=== PATIENT | male | born 1955 | race Caucasian/White ===

== ENCOUNTER 2017-07-10 09:58 | Observation (INO) | payer MEDICARE, OTHER ==
[2017-07-10] MEDS ORDERED: OXYCODONE/ACETAMINOPHEN (5/325) TAB PO ×3 (11:30→15:30)
[2017-07-10] MEDS ORDERED: DIPHENHYDRAMINE 25 MG CAP PO (11:30)
[2017-07-10 11:38] LABS: ADD MAN DIFF? NO
[2017-07-10 11:46] LABS: WHITE BLOOD COUNT 6.4 10^3/ul (4.8-10.8)
[2017-07-10 11:46] LABS: ABNORMAL IP MESSAGE 1; BASOPHILS % 0.2 % (0.0-2.0); HEMATOCRIT 35.3 % (42.0-52.0); HEMOGLOBIN 11.4 g/dl (14.0-18.0); LYMPHOCYTES # 0.2 10^3/ul (0.8-2.9); LYMPHOCYTES % 3.1 % (15.0-51.0); MEAN CORPUSCULAR HEMOGLOBIN 26.8 pg (29.0-33.0); MEAN CORPUSCULAR HGB CONC 32.3 g/dl (32.0-37.0); MEAN CORPUSCULAR VOLUME 83.1 fl (82.0-101.0); MEAN PLATELET VOLUME 11.6 fl (7.4-10.4); MONOCYTE # 0.5 10^3/ul (0.3-0.9); NEUTROPHIL # 5.6 10^3/ul (1.6-7.5); NEUTROPHILS % 88.2 % (39.0-77.0); PLATELET COUNT 123 10^3/UL (140-415); POSITIVE DIFF @See below; RED BLOOD COUNT 4.25 10^6/ul (4.70-6.10); RED CELL DISTRIBUTION WIDTH 15.2 % (11.5-14.5)
[2017-07-10] MEDS: SOD CHLORIDE 0.9% 1,000 ML IV ×2 (11:57→12:00)
[2017-07-10] MEDS: VANCOMYCIN 1 GM (PMX) 250 ML IVPB (11:57)
[2017-07-10 12:04] LABS: ALANINE AMINOTRANSFERASE 31 IU/L (13-69); ALBUMIN 3.6 g/dl (3.3-4.9); ALBUMIN/GLOBULIN RATIO 1.16; ALKALINE PHOSPHATASE 214 IU/L (42-121); ANION GAP 17 (8-16); ASPARTATE AMINO TRANSFERASE 19 IU/L (15-46); BILIRUBIN,INDIRECT 1.1 mg/dl (0-1.1); BILIRUBIN,TOTAL 1.2 mg/dl (0.2-1.3); CARBON DIOXIDE 28 mmol/L (21-31); CHLORIDE 101 mmol/L (97-110); GLUCOSE 120 mg/dl (70-220); TOTAL PROTEIN 6.7 g/dl (6.1-8.1)
[2017-07-10 12:08] LABS: BLOOD UREA NITROGEN 18 mg/dl (7-20); CALCIUM 8.9 mg/dl (8.4-10.2); CREATININE 0.97 mg/dl (0.61-1.24); SODIUM 142 mmol/L (135-144)
[2017-07-10 12:23] LABS: ADD UMIC YES; UR ASCORBIC ACID NEGATIVE (NEGATIVE); UR BILIRUBIN (Dip) 2+ mg/dL (NEGATIVE); UR BLOOD (Dip) NEGATIVE (NEGATIVE); UR CLARITY CLEAR (CLEAR); UR COLOR AMBER (YELLOW); UR GLUCOSE (Dip) NEGATIVE (NEGATIVE); UR KETONES (Dip) NEGATIVE (NEGATIVE); UR LEUKOCYTE ESTERASE (Dip) NEGATIVE Leu/ul (NEGATIVE); UR MUCUS FEW /HPF (NONE SEEN); UR NITRITE (Dip) NEGATIVE (NEGATIVE); UR RBC 6 /HPF (0-5); UR SPECIFIC GRAVITY (Dip) 1.028 (1.003-1.030); UR TOTAL PROTEIN (Dip) 1+ mg/dl (NEGATIVE); UR UROBILINOGEN (Dip) 2+ mg/dL (NEGATIVE); UR WBC 2 /HPF (0-5)
[2017-07-10] MEDS ORDERED: ROCURONIUM 50 MG INJ (15:00)
[2017-07-10] MEDS ORDERED: GLYCOPYRROLATE 0.4 MG INJ (15:00)
[2017-07-10] MEDS ORDERED: NEOSTIGMINE 3 MG/3 ML SYRINGE (15:00)
[2017-07-10] MEDS ORDERED: LIDOCAINE 2% (SDV) 5 ML INJ (15:00)
[2017-07-10] MEDS ORDERED: PROPOFOL 200 MG INJ (15:00)
[2017-07-10] MEDS ORDERED: PIPER-TAZO 3.375 GM IV (PMX) 100 ML (15:02)
[2017-07-10] MEDS ORDERED: ROPIVACAINE 0.5 % 30 ML VIAL (15:04)
[2017-07-10] MEDS ORDERED: HYDROCORTISONE 100 MG INJ (15:26)
[2017-07-10] MEDS ORDERED: MIDAZOLAM 1 MG/ML 2 ML INJ IV (15:30)
[2017-07-10] MEDS ORDERED: HYDROmorphONE (0.2 MG/ML) 10ML SYG IV ×3 (15:30)
[2017-07-10] MEDS ORDERED: FENTAnyl 50 MCG/ML VIAL IV ×2 (15:30)
[2017-07-10] MEDS ORDERED: hydrALAzine 20 MG INJ IV (15:30)
[2017-07-10] MEDS ORDERED: ALBUTEROL 0.083% (NEB) 2.5 MG/3 ML AMP HHN (15:30)
[2017-07-10] MEDS ORDERED: LABETALOL HCL 20MG INJ IV (15:30)
[2017-07-10] MEDS ORDERED: MEPERIDINE 25 MG INJ IV (15:30)
[2017-07-10] MEDS ORDERED: METOCLOPRAMIDE 10 MG INJ IV (15:30)
[2017-07-10] MEDS ORDERED: ONDANSETRON 4 MG INJ IV (15:30)
[2017-07-10] MEDS ORDERED: DIPHENHYDRAMINE 50 MG INJ IV (15:30)
[2017-07-10] MEDS ORDERED: KETOROLAC 30 MG INJ IV (15:30)
[2017-07-10] MEDS ORDERED: EPHEDrine SULFATE 50 MG/5 ML SYG IV (15:30)
[2017-07-10] MEDS ORDERED: morphine 10 MG INJ (15:31)
[2017-07-10] MEDS: VANCOMYCIN 1 GM INJ IVPB (16:00)
[2017-07-10] MEDS: PIPER-TAZO 3.375 GM IV (PMX) 100 ML IVPB (16:00)
[2017-07-10] MEDS: POLYMYXIN B 500000 UNIT INJ IRR (16:00)
[2017-07-10] MEDS: BACITRACIN 50000 UNITS INJ IRR (16:00)
[2017-07-10 16:04] LABS: FREE T4 (FREE THYROXINE) 0.68 ng/dl (0.78-2.44)
[2017-07-10 16:05] LABS: T4 (THYROXINE) 2.9 ug/dl (5.5-11.0)
[2017-07-10] MEDS ORDERED: VANCOMYCIN 1 GM INJ (16:09)
[2017-07-10] MEDS ORDERED: POLYMYXIN B 500000 UNIT INJ ×2 (16:09→16:25)
[2017-07-10 16:12] LABS: ALANINE AMINOTRANSFERASE 26 IU/L (13-69); ALBUMIN 3.6 g/dl (3.3-4.9); ALKALINE PHOSPHATASE 201 IU/L (42-121); ASPARTATE AMINO TRANSFERASE 18 IU/L (15-46); BILIRUBIN,TOTAL 1.1 mg/dl (0.2-1.3); TOTAL PROTEIN 5.9 g/dl (6.1-8.1)
[2017-07-10] MEDS ORDERED: LABETALOL HCL 20MG INJ (16:46)
[2017-07-10] MEDS ORDERED: KETOROLAC 30 MG INJ (17:06)
[2017-07-10] MEDS ORDERED: FENTAnyl 50 MCG/ML VIAL (17:12)
[2017-07-10] MEDS: FENTAnyl 50 MCG/ML VIAL IV ×2 (18:13→18:35)
[2017-07-10 18:33] LABS: PLATELET COUNT 104 10^3/UL (140-415)
[2017-07-10 18:51] LABS: INR 1.24; PROTIME 15.8 Sec (11.9-14.9); PT RATIO 1.2
[2017-07-10 18:52] LABS: PARTIAL THROMBOPLASTIN TIME 37.9 Sec (25.0-35.0)
[2017-07-10 18:56] LABS: THROMBIN TIME 14.8 SEC (13.8-19.1)
[2017-07-10] MEDS: morphine 10 MG INJ IV ×2 (18:58→23:28)
[2017-07-10] MEDS: HYDROCORTISONE 100 MG INJ IV (21:31)
[2017-07-11] MEDS: SOD CHLORIDE 0.9% 1,000 ML IV ×2 (01:20→14:40)
[2017-07-11] MEDS: HYDROmorphONE 0.5 MG/0.5 ML SYG IV ×3 (01:30→10:53)
[2017-07-11 05:25] LABS: ABNORMAL IP MESSAGE 1; HEMOGLOBIN 10.3 g/dl (14.0-18.0); MEAN CORPUSCULAR HEMOGLOBIN 26.7 pg (29.0-33.0); MEAN CORPUSCULAR HGB CONC 32.2 g/dl (32.0-37.0); MEAN CORPUSCULAR VOLUME 82.9 fl (82.0-101.0); MEAN PLATELET VOLUME 11.6 fl (7.4-10.4); PLATELET COUNT 95 10^3/UL (140-415); POSITIVE DIFF @See below; RED BLOOD COUNT 3.86 10^6/ul (4.70-6.10); RED CELL DISTRIBUTION WIDTH 15.1 % (11.5-14.5)
[2017-07-11 05:51] LABS: ADD MAN DIFF? YES
[2017-07-11 06:24] LABS: ALANINE AMINOTRANSFERASE 28 IU/L (13-69); ALBUMIN/GLOBULIN RATIO 1.42; ALKALINE PHOSPHATASE 159 IU/L (42-121); ANION GAP 16 (8-16); ASPARTATE AMINO TRANSFERASE 17 IU/L (15-46); BILIRUBIN,INDIRECT 0.2 mg/dl (0-1.1); BILIRUBIN,TOTAL 0.2 mg/dl (0.2-1.3); BLOOD UREA NITROGEN 23 mg/dl (7-20); CALCIUM 8.3 mg/dl (8.4-10.2); CARBON DIOXIDE 26 mmol/L (21-31); CHLORIDE 107 mmol/L (97-110); CREATININE 0.74 mg/dl (0.61-1.24); GLUCOSE 145 mg/dl (70-220); POTASSIUM 4.2 mmol/L (3.5-5.1); SODIUM 145 mmol/L (135-144); TOTAL PROTEIN 5.1 g/dl (6.1-8.1)
[2017-07-11 07:21] LABS: PHOSPHORUS 3.2 mg/dl (2.5-4.9)
[2017-07-11 07:21] LABS: MAGNESIUM 2.1 mg/dl (1.7-2.5)
[2017-07-11] MEDS: SERTRALINE 100 MG TAB PO (08:58)
[2017-07-11] MEDS: predniSONE 10 MG TAB PO (08:58)
[2017-07-11] MEDS: ARIPIPRAZOLE 10 MG TAB PO (08:58)
[2017-07-11 10:26] LABS: LYMPHOCYTES # 0.2 10^3/ul (0.8-2.9); LYMPHOCYTES % 9.7 % (15.0-51.0); MONOCYTE # 0.2 10^3/ul (0.3-0.9); MONOCYTES % 7.1 % (0.0-11.0); NEUTROPHILS % 82.8 % (39.0-77.0)
[2017-07-11] MEDS ORDERED: VANCOMYCIN IV PER PHARMACY XX (10:30)
[2017-07-11 10:31] LABS: WHITE BLOOD COUNT 2.4 10^3/ul (4.8-10.8)
[2017-07-11] MEDS: PIPER-TAZO 3.375 GM IV (PMX) 100 ML IVPB ×3 (10:52→22:00)
[2017-07-11 11:38] LABS: ADD MAN DIFF? NO
[2017-07-11 11:56] LABS: ABNORMAL IP MESSAGE 1; BASOPHILS % 0.3 % (0.0-2.0); HEMATOCRIT 35.1 % (42.0-52.0); HEMOGLOBIN 11.4 g/dl (14.0-18.0); LYMPHOCYTES # 0.4 10^3/ul (0.8-2.9); LYMPHOCYTES % 10.1 % (15.0-51.0); MEAN CORPUSCULAR HEMOGLOBIN 27.2 pg (29.0-33.0); MEAN CORPUSCULAR HGB CONC 32.5 g/dl (32.0-37.0); MEAN CORPUSCULAR VOLUME 83.8 fl (82.0-101.0); MEAN PLATELET VOLUME 12.6 fl (7.4-10.4); MONOCYTE # 0.3 10^3/ul (0.3-0.9); MONOCYTES % 7.2 % (0.0-11.0); NEUTROPHIL # 3.1 10^3/ul (1.6-7.5); NEUTROPHILS % 81.9 % (39.0-77.0); PLATELET COUNT 123 10^3/UL (140-415); POSITIVE DIFF @See below; RED BLOOD COUNT 4.19 10^6/ul (4.70-6.10); RED CELL DISTRIBUTION WIDTH 15.3 % (11.5-14.5)
[2017-07-11 11:56] LABS: WHITE BLOOD COUNT 3.8 10^3/ul (4.8-10.8)
[2017-07-11 12:47] LABS: C-REACTIVE PROTEIN 16.7 mg/dl (0.0-0.9)
[2017-07-11] MEDS: VANCOMYCIN 1.5 GM in SOD CHLORIDE 0.9% 250 ML IVPB ×2 (12:48→23:05)
[2017-07-11] MEDS: ONDANSETRON 4 MG INJ IV ×2 (14:15→22:00)
[2017-07-11] MEDS: oxyCODONE (CR) 40 MG TAB [oxyCONTIN] PO ×2 (15:30→21:58)
[2017-07-11] MEDS: LIDOCAINE 1% (MPF) 5 ML VIAL SC (15:30)
[2017-07-11] MEDS: HYDROmorphONE 2 MG/ML SYG IV ×2 (18:12→23:05)
[2017-07-11] MEDS: RIVAROXABAN 10 MG TABLET PO (18:12)
[2017-07-12] MEDS: HYDROmorphONE 2 MG/ML SYG IV ×4 (00:13→11:12)
[2017-07-12] MEDS: SOD CHLORIDE 0.9% 1,000 ML IV ×2 (04:00→17:11)
[2017-07-12 05:52] LABS: ADD MAN DIFF? NO
[2017-07-12 05:58] LABS: BASOPHILS % 0.5 % (0.0-2.0); HEMATOCRIT 33.4 % (42.0-52.0); HEMOGLOBIN 10.7 g/dl (14.0-18.0); LYMPHOCYTES # 0.6 10^3/ul (0.8-2.9); LYMPHOCYTES % 15.3 % (15.0-51.0); MEAN CORPUSCULAR HEMOGLOBIN 26.8 pg (29.0-33.0); MEAN CORPUSCULAR VOLUME 83.7 fl (82.0-101.0); MEAN PLATELET VOLUME 11.8 fl (7.4-10.4); MONOCYTE # 0.5 10^3/ul (0.3-0.9); MONOCYTES % 12.9 % (0.0-11.0); NEUTROPHIL # 2.9 10^3/ul (1.6-7.5); NEUTROPHILS % 71.1 % (39.0-77.0); PLATELET COUNT 139 10^3/UL (140-415); RED BLOOD COUNT 3.99 10^6/ul (4.70-6.10); RED CELL DISTRIBUTION WIDTH 15.1 % (11.5-14.5)
[2017-07-12] MEDS: PIPER-TAZO 3.375 GM IV (PMX) 100 ML IVPB (06:10)
[2017-07-12] MEDS: oxyCODONE (CR) 40 MG TAB [oxyCONTIN] PO ×2 (06:10→14:21)
[2017-07-12] MEDS: predniSONE 5 MG TAB PO (06:10)
[2017-07-12 06:12] LABS: MAGNESIUM 2.1 mg/dl (1.7-2.5)
[2017-07-12 06:12] LABS: PHOSPHORUS 3.5 mg/dl (2.5-4.9)
[2017-07-12 06:20] LABS: ALANINE AMINOTRANSFERASE 31 IU/L (13-69); ALBUMIN 3.2 g/dl (3.3-4.9); ALBUMIN/GLOBULIN RATIO 1.28; ALKALINE PHOSPHATASE 133 IU/L (42-121); ANION GAP 15 (8-16); ASPARTATE AMINO TRANSFERASE 19 IU/L (15-46); BILIRUBIN,INDIRECT 0.1 mg/dl (0-1.1); BILIRUBIN,TOTAL 0.1 mg/dl (0.2-1.3); BLOOD UREA NITROGEN 20 mg/dl (7-20); CALCIUM 8.2 mg/dl (8.4-10.2); CARBON DIOXIDE 27 mmol/L (21-31); CHLORIDE 108 mmol/L (97-110); CREATININE 0.77 mg/dl (0.61-1.24); GLUCOSE 107 mg/dl (70-220); POTASSIUM 3.7 mmol/L (3.5-5.1); SODIUM 146 mmol/L (135-144); TOTAL PROTEIN 5.7 g/dl (6.1-8.1)
[2017-07-12] MEDS: SERTRALINE 100 MG TAB PO (09:50)
[2017-07-12] MEDS: ARIPIPRAZOLE 10 MG TAB PO (09:50)
[2017-07-12] MEDS: clonAZEPAM 0.5 MG TAB PO (09:50)
[2017-07-12] MEDS: VANCOMYCIN 1.5 GM in SOD CHLORIDE 0.9% 250 ML IVPB (11:14)
[2017-07-12] MEDS: CIPROFLOXACIN 500 MG TAB PO (14:21)
[2017-07-12] MEDS: CEFTRIAXONE 2 GM/50 ML (PMX) 50 ML IVPB (15:33)
[2017-07-12] MEDS: RIVAROXABAN 10 MG TABLET PO (17:55)
[2017-07-12] MEDS ORDERED: CIPROFLOXACIN 500 MG TAB PO (20:00)
[2017-07-14 17:16] LABS: PTH CALCIUM 8.6 mg/dL (8.6-10.3)
[2017-07-15 07:47] LABS: PTH INTACT 43 pg/mL (14-64)
== END 2017-07-12 18:25 | disposition home health service (06) ==
LOC: SDS 09:58 → MS1 07-11 03:00 → REC 11:08 → MS1 18:27 → REC 18:27 → SDS 11:08 → MS1 18:27
DX: T85.698A Other mechanical complication of other specified internal prosthetic devices, implants and grafts, initial encounter (principal); L03.116 Cellulitis of left lower limb; M86.9 Osteomyelitis, unspecified; M06.9 Rheumatoid arthritis, unspecified; M32.9 Systemic lupus erythematosus, unspecified; Y83.9 Surgical procedure, unspecified as the cause of abnormal reaction of the patient, or of later complication, without mention of misadventure at the time of the procedure
CPT/HCPCS: 20680; 36569; 71045; 73600-LT; 76937; 80053; 80076; 81001; 82306; 83735; 83970; 84100; 84436; 84439; 84443; 85025; 85049; 85610; 85651; 85670; 85730; 86140; 87070; 87075; 87102; 87116; 88304; 88311; 88312; 93005; 97116; 97161; 97530

== ENCOUNTER 2017-08-09 18:06 | Inpatient (IN) | payer MEDICARE, OTHER ==
[2017-08-09] MEDS: SODIUM CHLORIDE 0.9% 1L BAG IV* (18:53)
[2017-08-09] MEDS: CEFEPIME 2GM/50 ML (PMX) 50 ML IVPB (18:58)
[2017-08-09] MEDS: ACETAMINOPHEN 500 MG TAB PO (18:59)
[2017-08-09] MEDS: ONDANSETRON 4 MG INJ IV (18:59)
[2017-08-09] MEDS: HYDROmorphONE 1 MG/5 ML IV SYRINGE IV (18:59)
[2017-08-09 19:04] LABS: ADD MAN DIFF? NO
[2017-08-09 19:06] LABS: ABNORMAL IP MESSAGE 1; BASOPHILS % 0.3 % (0.0-2.0); HEMATOCRIT 33.7 % (42.0-52.0); HEMOGLOBIN 10.8 g/dl (14.0-18.0); LYMPHOCYTES # 0.4 10^3/ul (0.8-2.9); MEAN CORPUSCULAR HEMOGLOBIN 25.7 pg (29.0-33.0); MONOCYTE # 0.4 10^3/ul (0.3-0.9); MONOCYTES % 9.2 % (0.0-11.0); NEUTROPHIL # 3.1 10^3/ul (1.6-7.5); NEUTROPHILS % 79.2 % (39.0-77.0); PLATELET COUNT 125 10^3/UL (140-415); POSITIVE DIFF @See below; RED BLOOD COUNT 4.21 10^6/ul (4.70-6.10); RED CELL DISTRIBUTION WIDTH 15.4 % (11.5-14.5)
[2017-08-09 19:06] LABS: WHITE BLOOD COUNT 3.9 10^3/ul (4.8-10.8)
[2017-08-09 19:20] LABS: INR 1.18; PROTIME 15.2 Sec (11.9-14.9); PT RATIO 1.2
[2017-08-09 19:21] LABS: PARTIAL THROMBOPLASTIN TIME 42.2 Sec (25.0-35.0)
[2017-08-09 19:26] LABS: LACTIC ACID 1.2 mmol/L (0.5-2.0)
[2017-08-09 19:28] LABS: ALANINE AMINOTRANSFERASE 40 IU/L (13-69); ALBUMIN 3.3 g/dl (3.3-4.9); ALBUMIN/GLOBULIN RATIO 1.22; ALKALINE PHOSPHATASE 303 IU/L (42-121); ANION GAP 13 (8-16); ASPARTATE AMINO TRANSFERASE 31 IU/L (15-46); BILIRUBIN,INDIRECT 0.3 mg/dl (0-1.1); BILIRUBIN,TOTAL 0.3 mg/dl (0.2-1.3); BLOOD UREA NITROGEN 15 mg/dl (7-20); CALCIUM 8.6 mg/dl (8.4-10.2); CARBON DIOXIDE 28 mmol/L (21-31); CHLORIDE 95 mmol/L (97-110); CREATININE 0.91 mg/dl (0.61-1.24); GLUCOSE 129 mg/dl (70-220); POTASSIUM 3.8 mmol/L (3.5-5.1); SODIUM 132 mmol/L (135-144)
[2017-08-09] MEDS ORDERED: ONDANSETRON 4 MG INJ IV (19:30)
[2017-08-09 19:39] LABS: C-REACTIVE PROTEIN 14.1 mg/dl (0.0-0.9); TROPONIN-I < 0.012 ng/ml (0.00-0.12)
[2017-08-09 20:09] LABS: ERYTHROCYTE SEDIMENTATION RATE 28 mm/Hr (0-20)
[2017-08-09] MEDS: VANCOMYCIN 1 GM (PMX) 250 ML IVPB (20:41)
[2017-08-09] MEDS ORDERED: oxyCODONE (CR) 40 MG TAB [oxyCONTIN] PO (21:00)
[2017-08-09 21:39] LABS: LACTIC ACID 0.8 mmol/L (0.5-2.0)
[2017-08-10 00:02] LABS: LACTIC ACID 0.8 mmol/L (0.5-2.0)
[2017-08-10] MEDS: PIPER-TAZO 3.375 GM IV (PMX) 100 ML IVPB ×5 (00:23→23:28)
[2017-08-10] MEDS: morphine 2 MG INJ IV ×3 (00:23→20:11)
[2017-08-10] MEDS: ACETAMINOPHEN 325 MG TAB PO (03:08)
[2017-08-10 03:17] LABS: ADD UMIC NO; UR ASCORBIC ACID NEGATIVE (NEGATIVE); UR BILIRUBIN (Dip) NEGATIVE (NEGATIVE); UR BLOOD (Dip) NEGATIVE (NEGATIVE); UR CLARITY CLEAR (CLEAR); UR COLOR YELLOW (YELLOW); UR GLUCOSE (Dip) NEGATIVE (NEGATIVE); UR KETONES (Dip) TRACE mg/dL (NEGATIVE); UR LEUKOCYTE ESTERASE (Dip) NEGATIVE Leu/ul (NEGATIVE); UR NITRITE (Dip) NEGATIVE (NEGATIVE); UR SPECIFIC GRAVITY (Dip) 1.027 (1.003-1.030); UR TOTAL PROTEIN (Dip) NEGATIVE (NEGATIVE); UR UROBILINOGEN (Dip) NEGATIVE (NEGATIVE)
[2017-08-10 06:26] LABS: ABNORMAL IP MESSAGE 1; HEMATOCRIT 30.9 % (42.0-52.0); HEMOGLOBIN 9.6 g/dl (14.0-18.0); MEAN CORPUSCULAR HEMOGLOBIN 25.5 pg (29.0-33.0); MEAN CORPUSCULAR HGB CONC 31.1 g/dl (32.0-37.0); MEAN CORPUSCULAR VOLUME 82.2 fl (82.0-101.0); MEAN PLATELET VOLUME 12.1 fl (7.4-10.4); PLATELET COUNT 83 10^3/UL (140-415); POSITIVE DIFF @See below; RED BLOOD COUNT 3.76 10^6/ul (4.70-6.10); RED CELL DISTRIBUTION WIDTH 15.4 % (11.5-14.5)
[2017-08-10 06:26] LABS: WHITE BLOOD COUNT 2.3 10^3/ul (4.8-10.8)
[2017-08-10 07:08] LABS: ANION GAP 18 (8-16); BLOOD UREA NITROGEN 12 mg/dl (7-20); CALCIUM 8.1 mg/dl (8.4-10.2); CARBON DIOXIDE 25 mmol/L (21-31); CHLORIDE 100 mmol/L (97-110); GLUCOSE 192 mg/dl (70-220); POTASSIUM 3.7 mmol/L (3.5-5.1); SODIUM 139 mmol/L (135-144)
[2017-08-10 07:09] LABS: ADD MAN DIFF? YES
[2017-08-10] MEDS ORDERED: SERTRALINE 100 MG TAB PO (09:00)
[2017-08-10] MEDS: ENOXAPARIN 40 MG/0.4 ML SYG SC (09:00)
[2017-08-10] MEDS: VANCOMYCIN 1 GM (PMX) 250 ML IVPB ×2 (09:39→20:02)
[2017-08-10] MEDS: SERTRALINE 100 MG TAB PO (09:39)
[2017-08-10] MEDS: oxyCODONE (CR) 10 MG TAB [oxyCONTIN] PO ×2 (09:44→20:02)
[2017-08-10] MEDS ORDERED: SOD CHLORIDE 0.9% 100 ML (10:31)
[2017-08-10] MEDS ORDERED: IOHEXOL 300MG/ML 150 ML BTL (10:31)
[2017-08-10 12:05] LABS: ANISOCYTOSIS 2+ (0-0); BAND NEUTROPHILS #M 0.1 10^3/ul (0.0-0.6); BAND NEUTROPHILS % (M) 6 % (0-4); BURR CELLS 3+ (0-0); EOSINOPHILS % (M) 9 % (0-7); GIANT THROMBO% (M) 14 % (0-0); LYMPHOCYTES #M 0.3 10^3/ul (0.8-2.9); LYMPHOCYTES % (M) 14 % (15-51); MICROCYTOSIS 2+ (0-0); MONOCYTE #M 0.1 10^3/ul (0.3-0.9); MONOCYTES % (M) 8 % (0-11); OVALOCYTES 2+ (0-0); PLATELET ESTIMATE DECREASED; PLATELET MORPHOLOGY COMMENT @See below; POIKILOCYTOSIS 3+ (0-0); POLYCHROMASIA 1+ (0-0); SEG NEUT #M 1.5 10^3/ul (1.6-7.5); SEGMENTED NEUTROPHILS (M) % 64 % (39-77); SMUDGE%M 11 % (0-0)
[2017-08-10] MEDS ORDERED: PENDING SANTYL ORDER FOR WOUND CARE XX (14:30)
[2017-08-10] MEDS: SOD CHLORIDE 0.9% 1,000 ML IV ×2 (20:30→23:30)
[2017-08-11] MEDS: morphine 2 MG INJ IV ×4 (00:21→15:17)
[2017-08-11] MEDS: PIPER-TAZO 3.375 GM IV (PMX) 100 ML IVPB ×3 (06:01→17:54)
[2017-08-11] MEDS: oxyCODONE (CR) 10 MG TAB [oxyCONTIN] PO ×2 (08:33→22:45)
[2017-08-11] MEDS: SERTRALINE 100 MG TAB PO (08:33)
[2017-08-11] MEDS: ONDANSETRON 4 MG INJ IV (08:48)
[2017-08-11 08:59] LABS: ADD MAN DIFF? NO
[2017-08-11] MEDS ORDERED: predniSONE 5 MG TAB PO (09:00)
[2017-08-11 09:04] LABS: WHITE BLOOD COUNT 2.8 10^3/ul (4.8-10.8)
[2017-08-11 09:04] LABS: ABNORMAL IP MESSAGE 1; BASOPHILS % 0.4 % (0.0-2.0); HEMATOCRIT 31.3 % (42.0-52.0); LYMPHOCYTES # 0.3 10^3/ul (0.8-2.9); LYMPHOCYTES % 11.7 % (15.0-51.0); MEAN CORPUSCULAR HEMOGLOBIN 26.1 pg (29.0-33.0); MEAN CORPUSCULAR HGB CONC 31.9 g/dl (32.0-37.0); MEAN CORPUSCULAR VOLUME 81.7 fl (82.0-101.0); MEAN PLATELET VOLUME 12.5 fl (7.4-10.4); MONOCYTE # 0.4 10^3/ul (0.3-0.9); MONOCYTES % 12.4 % (0.0-11.0); NEUTROPHIL # 2.1 10^3/ul (1.6-7.5); NEUTROPHILS % 75.1 % (39.0-77.0); PLATELET COUNT 116 10^3/UL (140-415); POSITIVE DIFF @See below; RED BLOOD COUNT 3.83 10^6/ul (4.70-6.10); RED CELL DISTRIBUTION WIDTH 15.6 % (11.5-14.5)
[2017-08-11 09:21] LABS: IRON 30 ug/dl (35-150)
[2017-08-11 09:30] LABS: % IRON SATURATION 12 % SAT (22-52); TOTAL IRON BINDING CAPACITY 260 ug/dl (241-421)
[2017-08-11 09:33] LABS: ANION GAP 15 (8-16); BLOOD UREA NITROGEN 8 mg/dl (7-20); CALCIUM 8.3 mg/dl (8.4-10.2); CARBON DIOXIDE 23 mmol/L (21-31); CHLORIDE 105 mmol/L (97-110); CREATININE 0.74 mg/dl (0.61-1.24); GLUCOSE 124 mg/dl (70-220); POTASSIUM 3.4 mmol/L (3.5-5.1); SODIUM 140 mmol/L (135-144)
[2017-08-11 09:34] LABS: VANCOMYCIN,TROUGH 7.8 ug/ml (10.0-20.0)
[2017-08-11 09:36] LABS: MAGNESIUM 1.7 mg/dl (1.7-2.5)
[2017-08-11 10:07] LABS: ERYTHROCYTE SEDIMENTATION RATE 18 mm/Hr (0-20)
[2017-08-11 10:20] LABS: FERRITIN 65.3 ng/ml (11.1-264.0)
[2017-08-11] MEDS ORDERED: POTASSIUM CHLORIDE (SR) 10 MEQ TAB PO (10:30)
[2017-08-11 10:42] LABS: FOLATE 15.7 ng/ml (2.8-20.0)
[2017-08-11] MEDS: VANCOMYCIN 1 GM (PMX) 250 ML IVPB (10:47)
[2017-08-11] MEDS: POTASSIUM CHLORIDE (SR) 10 MEQ TAB PO (10:47)
[2017-08-11] MEDS: PANTOPRAZOLE 40 MG INJ IV (10:48)
[2017-08-11 13:59] LABS: C-REACTIVE PROTEIN 7.4 mg/dl (0.0-0.9)
[2017-08-11 16:05] LABS: C-REACTIVE PROTEIN 7.6 mg/dl (0.0-0.9)
[2017-08-11] MEDS: SOD CHLORIDE 0.9% 1,000 ML IV (16:30)
[2017-08-11] MEDS ORDERED: VANCOMYCIN 1.5 GM in SOD CHLORIDE 0.9% 250 ML IVPB (17:00)
[2017-08-11] MEDS: CHOLECALCIFEROL 2,000 UNIT CAP PO (17:30)
[2017-08-11] MEDS ORDERED: POLYMYXIN B 500000 UNIT INJ ×2 (17:55→19:49)
[2017-08-11] MEDS ORDERED: FENTAnyl 50 MCG/ML VIAL ×4 (19:17→21:11)
[2017-08-11] MEDS ORDERED: LIDOCAINE 2% (SDV) 5 ML INJ (19:17)
[2017-08-11] MEDS ORDERED: PROPOFOL 20 ML (19:17)
[2017-08-11] MEDS ORDERED: VANCOMYCIN 1 GM (PMX) 250 ML (19:25)
[2017-08-11] MEDS: BACITRACIN 50000 UNITS INJ (19:54)
[2017-08-11] MEDS: POLYMYXIN B 500000 UNIT INJ (19:55)
[2017-08-11] MEDS: VANCOMYCIN 1 GM INJ (20:13)
[2017-08-11] MEDS ORDERED: ONDANSETRON 4 MG INJ (20:57)
[2017-08-11] MEDS ORDERED: KETOROLAC 30 MG INJ (21:07)
[2017-08-11] MEDS ORDERED: LABETALOL HCL 20MG INJ IV (21:30)
[2017-08-11] MEDS ORDERED: HYDROmorphONE (0.2 MG/ML) 10ML SYG IV ×2 (21:30→21:35)
[2017-08-11] MEDS: VANCOMYCIN 1 GM 250 ML IVPB (21:45)
[2017-08-11] MEDS: HYDROmorphONE (0.2 MG/ML) 10ML SYG IV ×2 (21:46→22:01)
[2017-08-12] MEDS: POTASSIUM CHLORIDE (SR) 10 MEQ TAB PO (00:06)
[2017-08-12] MEDS: PIPER-TAZO 3.375 GM IV (PMX) 100 ML IVPB ×5 (00:07→23:34)
[2017-08-12] MEDS: morphine 2 MG INJ IV ×3 (00:11→16:26)
[2017-08-12] MEDS: VANCOMYCIN 1 GM 250 ML IVPB ×2 (02:40→09:39)
[2017-08-12] MEDS: ALTEPLASE (CATHFLO) 2 MG INJ CATHETER (06:47)
[2017-08-12] MEDS: PANTOPRAZOLE 40 MG INJ IV (07:23)
[2017-08-12] MEDS: SERTRALINE 100 MG TAB PO (08:23)
[2017-08-12] MEDS: oxyCODONE (CR) 10 MG TAB [oxyCONTIN] PO ×3 (08:23→23:34)
[2017-08-12] MEDS: CHOLECALCIFEROL 2,000 UNIT CAP PO (08:23)
[2017-08-12 08:59] LABS: ADD MAN DIFF? NO
[2017-08-12 09:05] LABS: WHITE BLOOD COUNT 3.5 10^3/ul (4.8-10.8)
[2017-08-12 09:05] LABS: ABNORMAL IP MESSAGE 1; BASOPHILS % 0.3 % (0.0-2.0); HEMATOCRIT 31.8 % (42.0-52.0); LYMPHOCYTES # 0.3 10^3/ul (0.8-2.9); LYMPHOCYTES % 7.8 % (15.0-51.0); MEAN CORPUSCULAR HEMOGLOBIN 25.6 pg (29.0-33.0); MEAN CORPUSCULAR HGB CONC 31.4 g/dl (32.0-37.0); MEAN CORPUSCULAR VOLUME 81.5 fl (82.0-101.0); MEAN PLATELET VOLUME 12.4 fl (7.4-10.4); MONOCYTE # 0.4 10^3/ul (0.3-0.9); MONOCYTES % 10.1 % (0.0-11.0); NEUTROPHIL # 2.8 10^3/ul (1.6-7.5); NEUTROPHILS % 81.8 % (39.0-77.0); PLATELET COUNT 150 10^3/UL (140-415); POSITIVE DIFF @See below; RED CELL DISTRIBUTION WIDTH 15.8 % (11.5-14.5)
[2017-08-12 09:23] LABS: ALBUMIN 2.8 g/dl (3.3-4.9)
[2017-08-12 09:27] LABS: ANION GAP 13 (8-16); BLOOD UREA NITROGEN 9 mg/dl (7-20); CALCIUM 8.5 mg/dl (8.4-10.2); CARBON DIOXIDE 23 mmol/L (21-31); CHLORIDE 112 mmol/L (97-110); CREATININE 1.01 mg/dl (0.61-1.24); GLUCOSE 149 mg/dl (70-220); MAGNESIUM 1.8 mg/dl (1.7-2.5); PARTIAL THROMBOPLASTIN TIME 32.7 Sec (25.0-35.0); PHOSPHORUS 3.1 mg/dl (2.5-4.9); POTASSIUM 4.2 mmol/L (3.5-5.1); PROTIME 14.2 Sec (11.9-14.9); SODIUM 144 mmol/L (135-144)
[2017-08-12] MEDS: SOD CHLORIDE 0.9% 1,000 ML IV (09:40)
[2017-08-12] MEDS: FERROUS FUMARATE (SR) TAB PO ×2 (10:46→22:10)
[2017-08-12] MEDS: ASPIRIN (EC) 81 MG TAB PO ×2 (13:14→22:10)
[2017-08-12 17:33] LABS: C-REACTIVE PROTEIN 5.1 mg/dl (0.0-0.9)
[2017-08-12 18:12] LABS: ANA SCREEN POSITIVE (NEGATIVE)
[2017-08-12 19:36] LABS: ANA PATTERN HOMOGENEOUS; ANA TITER 1:40 titer
[2017-08-13] MEDS: VANCOMYCIN 1 GM 250 ML IVPB ×2 (00:21→12:28)
[2017-08-13] MEDS: PIPER-TAZO 3.375 GM IV (PMX) 100 ML IVPB ×4 (05:35→23:40)
[2017-08-13] MEDS: PANTOPRAZOLE 40 MG INJ IV (05:36)
[2017-08-13 05:55] LABS: ADD MAN DIFF? NO
[2017-08-13] MEDS: morphine 2 MG INJ IV ×3 (05:56→23:45)
[2017-08-13 06:02] LABS: ABNORMAL IP MESSAGE 1; BASOPHILS % 0.2 % (0.0-2.0); HEMATOCRIT 29.9 % (42.0-52.0); HEMOGLOBIN 9.5 g/dl (14.0-18.0); LYMPHOCYTES # 0.5 10^3/ul (0.8-2.9); LYMPHOCYTES % 11.8 % (15.0-51.0); MEAN CORPUSCULAR HEMOGLOBIN 25.6 pg (29.0-33.0); MEAN CORPUSCULAR HGB CONC 31.8 g/dl (32.0-37.0); MEAN CORPUSCULAR VOLUME 80.6 fl (82.0-101.0); MEAN PLATELET VOLUME 12.1 fl (7.4-10.4); MONOCYTE # 0.4 10^3/ul (0.3-0.9); MONOCYTES % 10.3 % (0.0-11.0); NEUTROPHIL # 3.2 10^3/ul (1.6-7.5); NEUTROPHILS % 77.5 % (39.0-77.0); PLATELET COUNT 178 10^3/UL (140-415); POSITIVE DIFF @See below; RED BLOOD COUNT 3.71 10^6/ul (4.70-6.10); RED CELL DISTRIBUTION WIDTH 15.9 % (11.5-14.5)
[2017-08-13 06:02] LABS: WHITE BLOOD COUNT 4.1 10^3/ul (4.8-10.8)
[2017-08-13 06:33] LABS: BLOOD UREA NITROGEN 7 mg/dl (7-20)
[2017-08-13 06:33] LABS: CREATININE 1.16 mg/dl (0.61-1.24)
[2017-08-13] MEDS: CHOLECALCIFEROL 2,000 UNIT CAP PO ×2 (08:21→09:00)
[2017-08-13] MEDS: FERROUS FUMARATE (SR) TAB PO ×3 (08:21→20:58)
[2017-08-13] MEDS: ASPIRIN (EC) 81 MG TAB PO ×3 (08:21→20:58)
[2017-08-13] MEDS: SERTRALINE 100 MG TAB PO ×2 (08:21→09:00)
[2017-08-13] MEDS: SOD CHLORIDE 0.9% 1,000 ML IV (08:22)
[2017-08-13] MEDS: oxyCODONE (CR) 10 MG TAB [oxyCONTIN] PO ×3 (08:22→20:59)
[2017-08-13] MEDS: ONDANSETRON 4 MG INJ IV (12:34)
[2017-08-13 12:58] LABS: IMMUNOGLOBULIN A 53 mg/dl (70-400); IMMUNOGLOBULIN G 288 mg/dl (700-1600)
[2017-08-13 12:59] LABS: IMMUNOGLOBULIN M < 25 mg/dl (40-230)
[2017-08-13 16:17] LABS: C-REACTIVE PROTEIN 2.8 mg/dl (0.0-0.9)
[2017-08-13 16:21] LABS: PREALBUMIN 7.5 mg/dl (17.6-36.0)
[2017-08-14] MEDS: VANCOMYCIN 1 GM 250 ML IVPB ×2 (00:22→12:57)
[2017-08-14] MEDS: PANTOPRAZOLE 40 MG INJ IV (05:17)
[2017-08-14] MEDS: morphine 2 MG INJ IV ×2 (05:20→19:53)
[2017-08-14] MEDS: PIPER-TAZO 3.375 GM IV (PMX) 100 ML IVPB ×2 (05:23→11:50)
[2017-08-14 05:39] LABS: ADD MAN DIFF? NO
[2017-08-14 05:43] LABS: ABNORMAL IP MESSAGE 1; BASOPHILS % 0.3 % (0.0-2.0); HEMATOCRIT 29.5 % (42.0-52.0); HEMOGLOBIN 9.3 g/dl (14.0-18.0); LYMPHOCYTES # 0.5 10^3/ul (0.8-2.9); LYMPHOCYTES % 13.3 % (15.0-51.0); MEAN CORPUSCULAR HEMOGLOBIN 25.6 pg (29.0-33.0); MEAN CORPUSCULAR HGB CONC 31.5 g/dl (32.0-37.0); MEAN CORPUSCULAR VOLUME 81.3 fl (82.0-101.0); MEAN PLATELET VOLUME 12.1 fl (7.4-10.4); MONOCYTE # 0.4 10^3/ul (0.3-0.9); MONOCYTES % 10.7 % (0.0-11.0); NEUTROPHIL # 2.6 10^3/ul (1.6-7.5); NEUTROPHILS % 75.4 % (39.0-77.0); PLATELET COUNT 161 10^3/UL (140-415); POSITIVE DIFF @See below; RED BLOOD COUNT 3.63 10^6/ul (4.70-6.10); RED CELL DISTRIBUTION WIDTH 15.9 % (11.5-14.5)
[2017-08-14 05:43] LABS: WHITE BLOOD COUNT 3.4 10^3/ul (4.8-10.8)
[2017-08-14 06:04] LABS: BLOOD UREA NITROGEN 8 mg/dl (7-20); CALCIUM 8.5 mg/dl (8.4-10.2); CARBON DIOXIDE 26 mmol/L (21-31); CHLORIDE 112 mmol/L (97-110); CREATININE 1.14 mg/dl (0.61-1.24); GLUCOSE 121 mg/dl (70-220); MAGNESIUM 1.8 mg/dl (1.7-2.5); PHOSPHORUS 3.6 mg/dl (2.5-4.9); SODIUM 146 mmol/L (135-144)
[2017-08-14 06:15] LABS: ANION GAP 12 (8-16); POTASSIUM 3.5 mmol/L (3.5-5.1)
[2017-08-14] MEDS ORDERED: oxyCODONE (20 MG/ML PO SYG) SL (06:30)
[2017-08-14 06:57] LABS: PROTEIN, TOTAL 4.5 g/dL (6.1-8.1)
[2017-08-14] MEDS: POTASSIUM CHLORIDE (SR) 10 MEQ TAB PO (08:00)
[2017-08-14] MEDS: oxyCODONE (CR) 10 MG TAB [oxyCONTIN] PO ×3 (08:58→21:09)
[2017-08-14] MEDS: FERROUS FUMARATE (SR) TAB PO ×2 (09:01→21:09)
[2017-08-14] MEDS: ASPIRIN (EC) 81 MG TAB PO ×2 (09:02→21:09)
[2017-08-14] MEDS: SERTRALINE 100 MG TAB PO (09:03)
[2017-08-14] MEDS: CHOLECALCIFEROL 2,000 UNIT CAP PO (09:03)
[2017-08-14 11:36] LABS: VANCOMYCIN,TROUGH 17.3 ug/ml (10.0-20.0)
[2017-08-14] MEDS: CEFTRIAXONE 1 GM/50 ML (PMX) 50 ML IVPB (17:50)
[2017-08-14 19:57] LABS: ALBUMIN 2.6 g/dL (3.8-4.8); ALPHA-1-GLOBULINS 0.4 g/dL (0.2-0.3); ALPHA-2-GLOBULINS 0.7 g/dL (0.5-0.9); BETA 2 GLOBULINS 0.3 g/dL (0.2-0.5); BETA GLOBULINS 0.3 g/dL (0.4-0.6); GAMMA GLOBULINS 0.3 g/dL (0.8-1.7)
[2017-08-15 00:22] LABS: PLATELET ANTIBODY - IGA NEGATIVE (NEGATIVE); PLATELET ANTIBODY - IGG NEGATIVE (NEGATIVE); PLATELET ANTIBODY - IGM NEGATIVE (NEGATIVE)
[2017-08-15] MEDS: ACETAMINOPHEN 325 MG TAB PO ×2 (02:14→17:30)
[2017-08-15] MEDS: VANCOMYCIN 750 MG in DEXTROSE 5% 150 ML IVPB ×2 (03:58→17:22)
[2017-08-15] MEDS: PANTOPRAZOLE 40 MG INJ IV (05:43)
[2017-08-15] MEDS: SERTRALINE 100 MG TAB PO (08:57)
[2017-08-15] MEDS: oxyCODONE (CR) 10 MG TAB [oxyCONTIN] PO ×2 (08:57→12:42)
[2017-08-15] MEDS: CHOLECALCIFEROL 2,000 UNIT CAP PO (08:57)
[2017-08-15] MEDS: FERROUS FUMARATE (SR) TAB PO (08:57)
[2017-08-15] MEDS: ASPIRIN (EC) 81 MG TAB PO (08:57)
[2017-08-15] MEDS: morphine 2 MG INJ IV ×2 (10:16→14:34)
[2017-08-15] MEDS ORDERED: IMMUNE GLOBULIN (HUMAN) 6 GM INJ IV (10:48)
[2017-08-15] MEDS: ACETAMINOPHEN 500 MG TAB PO (15:14)
[2017-08-15] MEDS: DIPHENHYDRAMINE 50 MG INJ IV (15:15)
[2017-08-15] MEDS: EVAC CONTAINER IV (15:19)
[2017-08-15] MEDS: WATER STERILE FOR IV (15:19)
[2017-08-15] MEDS: IMMUNE GLOBULIN IV (15:19)
[2017-08-15] MEDS: CEFTRIAXONE 1 GM/50 ML (PMX) 50 ML IVPB (16:00)
[2017-08-15 16:31] LABS: TRANSFERRIN 183 mg/dL (188-341)
[2017-08-15 18:41] LABS: ERYTHROPOIETIN 20.8 mIU/mL (2.6-18.5)
== END 2017-08-15 19:35 | disposition home health service (06) | DRG 854 ==
LOC: MS2 08-10 11:23 → E/R 18:06 → MS2 19:28
PROC: 0QBK0ZZ Excision of Left Fibula, Open Approach (ICD-10-PCS; principal; 2017-08-11 19:17)
PROC: 0QBH0ZZ Excision of Left Tibia, Open Approach (ICD-10-PCS; 2017-08-11 19:17)
DX: A41.9 Sepsis, unspecified organism (principal); M00.9 Pyogenic arthritis, unspecified; M86.8X7 Other osteomyelitis, ankle and foot; L03.116 Cellulitis of left lower limb; F41.8 Other specified anxiety disorders; X58.XXXD Exposure to other specified factors, subsequent encounter; L93.0 Discoid lupus erythematosus; D69.6 Thrombocytopenia, unspecified; D72.810 Lymphocytopenia; D64.9 Anemia, unspecified; S82.402K Unspecified fracture of shaft of left fibula, subsequent encounter for closed fracture with nonunion; S82.52XK Displaced fracture of medial malleolus of left tibia, subsequent encounter for closed fracture with nonunion
CPT/HCPCS: 36415; 71045; 73700; 73721; 80048; 80053; 80202; 81003; 82040; 82306; 82565; 82607; 82668; 82728; 82746; 82784; 83540; 83605; 83735; 84100; 84134; 84155; 84165; 84466; 84484; 84520; 85025; 85335; 85610; 85613; 85651; 85730; 86022; 86038; 86140; 86320; 86850; 86900; 86901; 87040; 87070; 87075; 87081; 87086; 93005; 96365; 96366; 96375; 99291-25

== ENCOUNTER 2017-12-13 15:29 | Observation (INO) | payer MEDICARE, OTHER ==
[2017-12-13 06:20] LABS: ADD MAN DIFF? NO
[2017-12-13 06:27] LABS: BASOPHILS % 0.2 % (0.0-2.0); HEMATOCRIT 40.4 % (42.0-52.0); HEMOGLOBIN 12.4 g/dl (14.0-18.0); LYMPHOCYTES # 0.8 10^3/ul (0.8-2.9); LYMPHOCYTES % 16.4 % (15.0-51.0); MEAN CORPUSCULAR HEMOGLOBIN 24.8 pg (29.0-33.0); MEAN CORPUSCULAR HGB CONC 30.7 g/dl (32.0-37.0); MEAN CORPUSCULAR VOLUME 80.6 fl (82.0-101.0); MEAN PLATELET VOLUME 10.5 fl (7.4-10.4); MONOCYTE # 0.5 10^3/ul (0.3-0.9); NEUTROPHIL # 3.7 10^3/ul (1.6-7.5); NEUTROPHILS % 74.2 % (39.0-77.0); PLATELET COUNT 157 10^3/UL (140-415); RED BLOOD COUNT 5.01 10^6/ul (4.70-6.10); RED CELL DISTRIBUTION WIDTH 17.7 % (11.5-14.5)
[2017-12-13 06:37] LABS: ADD UMIC NO; UR ASCORBIC ACID NEGATIVE (NEGATIVE); UR BILIRUBIN (Dip) NEGATIVE (NEGATIVE); UR BLOOD (Dip) NEGATIVE (NEGATIVE); UR CLARITY CLEAR (CLEAR); UR COLOR YELLOW (YELLOW); UR GLUCOSE (Dip) NEGATIVE (NEGATIVE); UR KETONES (Dip) NEGATIVE (NEGATIVE); UR LEUKOCYTE ESTERASE (Dip) NEGATIVE Leu/ul (NEGATIVE); UR NITRITE (Dip) NEGATIVE (NEGATIVE); UR TOTAL PROTEIN (Dip) NEGATIVE (NEGATIVE); UR UROBILINOGEN (Dip) NEGATIVE (NEGATIVE)
[2017-12-13 06:42] LABS: INR 0.99; PROTIME 13.2 Sec (11.9-14.9)
[2017-12-13 06:43] LABS: PARTIAL THROMBOPLASTIN TIME 30.6 Sec (25.0-35.0)
[2017-12-13 06:47] LABS: ALANINE AMINOTRANSFERASE 34 IU/L (13-69); ALBUMIN 3.8 g/dl (3.3-4.9); ALBUMIN/GLOBULIN RATIO 1.35; ALKALINE PHOSPHATASE 261 IU/L (42-121); ANION GAP 12 (8-16); ASPARTATE AMINO TRANSFERASE 34 IU/L (15-46); BILIRUBIN,INDIRECT 0.5 mg/dl (0-1.1); BILIRUBIN,TOTAL 0.5 mg/dl (0.2-1.3); BLOOD UREA NITROGEN 16 mg/dl (7-20); CALCIUM 9.4 mg/dl (8.4-10.2); CARBON DIOXIDE 31 mmol/L (21-31); CHLORIDE 101 mmol/L (97-110); CREATININE 0.86 mg/dl (0.61-1.24); GLUCOSE 116 mg/dl (70-220); POTASSIUM 4.2 mmol/L (3.5-5.1); SODIUM 140 mmol/L (135-144); TOTAL PROTEIN 6.6 g/dl (6.1-8.1)
[2017-12-13] MEDS: CEFAZOLIN SODIUM 2GM/D5W 50 X1 IVPB (09:02)
[2017-12-13] MEDS: POLYMYXIN/BACITRACIN 1L IRRIG IRR (09:10)
[2017-12-13] MEDS: HYDROmorphONE 1 MG/5 ML IV SYRINGE IV ×2 (13:17→14:48)
[2017-12-13] MEDS: FENTAnyl 50 MCG/ML VIAL IV ×2 (13:18→14:49)
[2017-12-13] MEDS: MEPERIDINE 25 MG INJ IV (13:18)
[2017-12-13] MEDS: DIPHENHYDRAMINE 50 MG INJ IV (13:19)
[2017-12-13] MEDS: MIDAZOLAM 1 MG/ML 2 ML INJ IV (14:50)
[~2017-12-13 15:29] MED LIST: BUPIVACAINE 0.5% (SDV) 30 ML INJ; CEFAZOLIN 1 GM INJ; EPHEDrine SULFATE 50 MG/5 ML SYG IV; FENTAnyl 50 MCG/ML VIAL; FENTAnyl 50 MCG/ML VIAL IV; GLYCOPYRROLATE 0.4 MG INJ; HYDROCORTISONE 100 MG INJ; HYDROmorphONE 1 MG/5 ML IV SYRINGE IV; LABETALOL HCL 20MG INJ IV; LIDOCAINE 2% (SDV) 5 ML INJ; MEPERIDINE /PF (100 MG/2 ML) AMPULE; METOCLOPRAMIDE 10 MG INJ IV; NEOSTIGMINE 3 MG/3 ML SYRINGE; ONDANSETRON 4 MG INJ IV; OXYCODONE/ACETAMINOPHEN (5/325) TAB PO; POLYMYXIN/BACITRACIN 1L IRRIG; PROPOFOL 20 ML; ROCURONIUM 50 MG INJ; ROPIVACAINE 0.5 % 30 ML VIAL; SUCCINYLCHOLINE CHLORIDE 100 MG/5 ML SYG IV; hydrALAzine 20 MG INJ IV
[2017-12-13] MEDS ORDERED: OXYCODONE/ACETAMINOPHEN (10/325) TAB PO (16:00)
[2017-12-13] MEDS: morphine 2 MG INJ IV (16:01)
[2017-12-13] MEDS ORDERED: oxyCODONE 5 MG TAB PO (17:00)
[2017-12-13] MEDS: oxyCODONE (CR) 20 MG TAB [oxyCONTIN] PO ×2 (17:24→20:33)
[2017-12-13] MEDS: oxyCODONE 5 MG TAB PO ×2 (18:49→22:54)
[2017-12-14] MEDS: oxyCODONE 5 MG TAB PO ×4 (03:14→18:01)
[2017-12-14] MEDS: morphine 2 MG INJ IV ×5 (05:19→22:35)
[2017-12-14] MEDS: oxyCODONE (CR) 20 MG TAB [oxyCONTIN] PO ×3 (09:10→20:48)
[2017-12-14] MEDS: SERTRALINE 100 MG TAB PO (09:10)
[2017-12-14] MEDS: predniSONE 5 MG TAB PO (09:10)
[2017-12-14] MEDS: SENNA TAB PO ×2 (12:35→20:44)
[2017-12-14] MEDS ORDERED: oxyCODONE 5 MG TAB PO ×2 (13:00)
[2017-12-14 16:40] LABS: ADD MAN DIFF? NO
[2017-12-14 16:44] LABS: WHITE BLOOD COUNT 7.5 10^3/ul (4.8-10.8)
[2017-12-14 16:44] LABS: BASOPHILS % 0.1 % (0.0-2.0); HEMATOCRIT 38.7 % (42.0-52.0); HEMOGLOBIN 12.4 g/dl (14.0-18.0); LYMPHOCYTES # 0.8 10^3/ul (0.8-2.9); LYMPHOCYTES % 10.5 % (15.0-51.0); MEAN CORPUSCULAR HEMOGLOBIN 25.3 pg (29.0-33.0); MEAN PLATELET VOLUME 10.4 fl (7.4-10.4); MONOCYTE # 0.8 10^3/ul (0.3-0.9); MONOCYTES % 10.3 % (0.0-11.0); NEUTROPHIL # 5.9 10^3/ul (1.6-7.5); NEUTROPHILS % 78.7 % (39.0-77.0); PLATELET COUNT 146 10^3/UL (140-415); RED CELL DISTRIBUTION WIDTH 17.9 % (11.5-14.5)
[2017-12-14 17:02] LABS: ANION GAP 12 (8-16); BLOOD UREA NITROGEN 14 mg/dl (7-20); CALCIUM 9.3 mg/dl (8.4-10.2); CARBON DIOXIDE 28 mmol/L (21-31); CHLORIDE 102 mmol/L (97-110); CREATININE 0.82 mg/dl (0.61-1.24); GLUCOSE 119 mg/dl (70-220); SODIUM 138 mmol/L (135-144)
[2017-12-15] MEDS: morphine 2 MG INJ IV ×5 (01:25→15:45)
[2017-12-15 05:59] LABS: ADD MAN DIFF? NO
[2017-12-15 06:02] LABS: WHITE BLOOD COUNT 6.4 10^3/ul (4.8-10.8)
[2017-12-15 06:02] LABS: BASOPHILS % 0.2 % (0.0-2.0); HEMATOCRIT 38.6 % (42.0-52.0); HEMOGLOBIN 11.9 g/dl (14.0-18.0); LYMPHOCYTES # 0.8 10^3/ul (0.8-2.9); LYMPHOCYTES % 11.8 % (15.0-51.0); MEAN CORPUSCULAR HEMOGLOBIN 24.6 pg (29.0-33.0); MEAN CORPUSCULAR HGB CONC 30.8 g/dl (32.0-37.0); MEAN CORPUSCULAR VOLUME 79.8 fl (82.0-101.0); MEAN PLATELET VOLUME 11.1 fl (7.4-10.4); MONOCYTE # 0.7 10^3/ul (0.3-0.9); MONOCYTES % 11.1 % (0.0-11.0); NEUTROPHIL # 4.9 10^3/ul (1.6-7.5); NEUTROPHILS % 76.7 % (39.0-77.0); PLATELET COUNT 154 10^3/UL (140-415); RED BLOOD COUNT 4.84 10^6/ul (4.70-6.10); RED CELL DISTRIBUTION WIDTH 17.9 % (11.5-14.5)
[2017-12-15 06:48] LABS: ALANINE AMINOTRANSFERASE 42 IU/L (13-69); ALBUMIN 3.7 g/dl (3.3-4.9); ALBUMIN/GLOBULIN RATIO 1.32; ALKALINE PHOSPHATASE 291 IU/L (42-121); ANION GAP 14 (8-16); ASPARTATE AMINO TRANSFERASE 34 IU/L (15-46); BLOOD UREA NITROGEN 15 mg/dl (7-20); CALCIUM 9.1 mg/dl (8.4-10.2); CARBON DIOXIDE 26 mmol/L (21-31); CHLORIDE 102 mmol/L (97-110); GLUCOSE 108 mg/dl (70-220); POTASSIUM 3.7 mmol/L (3.5-5.1); SODIUM 138 mmol/L (135-144); TOTAL PROTEIN 6.5 g/dl (6.1-8.1)
[2017-12-15] MEDS: oxyCODONE 5 MG TAB PO ×2 (06:50→11:24)
[2017-12-15] MEDS: SENNA TAB PO (08:12)
[2017-12-15] MEDS: SERTRALINE 100 MG TAB PO (08:12)
[2017-12-15] MEDS: oxyCODONE (CR) 20 MG TAB [oxyCONTIN] PO (08:12)
[2017-12-15] MEDS: predniSONE 5 MG TAB PO (08:12)
[2017-12-15] MEDS ORDERED: morphine LIQ (10 MG/5 ML) CUP PO (17:30)
== END 2017-12-15 17:00 | disposition home or self-care (01) ==
LOC: SDS 15:29 → MS1 15:34
DX: T84.89XA Other specified complication of internal orthopedic prosthetic devices, implants and grafts, initial encounter (principal); Y79.3 Surgical instruments, materials and orthopedic devices (including sutures) associated with adverse incidents; Y83.8 Other surgical procedures as the cause of abnormal reaction of the patient, or of later complication, without mention of misadventure at the time of the procedure; S82.52XK Displaced fracture of medial malleolus of left tibia, subsequent encounter for closed fracture with nonunion; X58.XXXD Exposure to other specified factors, subsequent encounter; R09.02 Hypoxemia; D69.6 Thrombocytopenia, unspecified; F41.9 Anxiety disorder, unspecified
CPT/HCPCS: 27709; 71045; 73610; 80048; 80053; 81003; 85025; 85610; 85730

== ENCOUNTER 2017-12-31 18:18 | Emergency (ER) | payer MEDICARE, OTHER ==
[2017-12-31] MEDS: CEFTRIAXONE 1 GM/50 ML (PMX) 50 ML IVPB (19:44)
[2017-12-31] MEDS: HYDROmorphONE 2 MG/ML SYG IV (19:44)
[2017-12-31] MEDS: KETOROLAC 30 MG INJ IV (20:24)
== END 2017-12-31 20:46 | disposition home or self-care (01) ==
LOC: FTE 18:18
DX: L03.116 Cellulitis of left lower limb (principal); Z87.891 Personal history of nicotine dependence
CPT/HCPCS: 96374; 96375; 99284-25

== ENCOUNTER 2018-01-02 11:43 | Inpatient (IN) | payer MEDICARE, OTHER ==
[2018-01-02 13:10] LABS: ADD MAN DIFF? NO
[2018-01-02 13:11] LABS: ADD UMIC NO; UR ASCORBIC ACID NEGATIVE (NEGATIVE); UR BILIRUBIN (Dip) NEGATIVE (NEGATIVE); UR BLOOD (Dip) NEGATIVE (NEGATIVE); UR CLARITY CLEAR (CLEAR); UR COLOR AMBER (YELLOW); UR GLUCOSE (Dip) NEGATIVE (NEGATIVE); UR KETONES (Dip) NEGATIVE (NEGATIVE); UR LEUKOCYTE ESTERASE (Dip) NEGATIVE Leu/ul (NEGATIVE); UR NITRITE (Dip) NEGATIVE (NEGATIVE); UR SPECIFIC GRAVITY (Dip) 1.024 (1.003-1.030); UR TOTAL PROTEIN (Dip) NEGATIVE (NEGATIVE); UR UROBILINOGEN (Dip) NEGATIVE (NEGATIVE)
[2018-01-02] MEDS: SODIUM CHLORIDE 0.9% 1L BAG IV* (13:11)
[2018-01-02 13:15] LABS: WHITE BLOOD COUNT 7.2 10^3/ul (4.8-10.8)
[2018-01-02 13:15] LABS: ABNORMAL IP MESSAGE 1; BASOPHILS % 0.1 % (0.0-2.0); HEMATOCRIT 39.6 % (42.0-52.0); HEMOGLOBIN 12.6 g/dl (14.0-18.0); LYMPHOCYTES # 0.4 10^3/ul (0.8-2.9); LYMPHOCYTES % 5.2 % (15.0-51.0); MEAN CORPUSCULAR HEMOGLOBIN 25.2 pg (29.0-33.0); MEAN CORPUSCULAR HGB CONC 31.8 g/dl (32.0-37.0); MEAN CORPUSCULAR VOLUME 79.2 fl (82.0-101.0); MONOCYTE # 0.5 10^3/ul (0.3-0.9); MONOCYTES % 7.3 % (0.0-11.0); NEUTROPHIL # 6.2 10^3/ul (1.6-7.5); NEUTROPHILS % 87.3 % (39.0-77.0); PLATELET COUNT 171 10^3/UL (140-415); POSITIVE DIFF @See below; RED CELL DISTRIBUTION WIDTH 17.6 % (11.5-14.5)
[2018-01-02] MEDS: VANCOMYCIN 1.25 GM in SOD CHLORIDE 0.9% 250 ML IVPB ×2 (13:20→23:16)
[2018-01-02 13:30] LABS: LACTIC ACID 1.4 mmol/L (0.5-2.0)
[2018-01-02 13:32] LABS: ANION GAP 12 (8-16); BLOOD UREA NITROGEN 19 mg/dl (7-20); CALCIUM 8.9 mg/dl (8.4-10.2); CARBON DIOXIDE 28 mmol/L (21-31); CHLORIDE 103 mmol/L (97-110); CREATININE 0.91 mg/dl (0.61-1.24); GLUCOSE 136 mg/dl (70-220); POTASSIUM 4.2 mmol/L (3.5-5.1); SODIUM 139 mmol/L (135-144)
[2018-01-02 13:34] LABS: INR 1.08; PARTIAL THROMBOPLASTIN TIME 33.1 Sec (25.0-35.0); PROTIME 14.1 Sec (11.9-14.9); PT RATIO 1.1
[2018-01-02 13:47] LABS: TROPONIN-I < 0.012 ng/ml (0.000-0.120)
[2018-01-02] MEDS: CEFTRIAXONE 1 GM/50 ML (PMX) 50 ML IVPB ×2 (14:16→17:30)
[2018-01-02] MEDS: morphine 4 MG/ML VIAL IV (14:16)
[2018-01-02] MEDS ORDERED: ONDANSETRON 4 MG INJ IV (14:30)
[2018-01-02] MEDS ORDERED: ACETAMINOPHEN 325 MG TAB PO (14:30)
[2018-01-02] MEDS ORDERED: ALBUTEROL/IPRATROPIUM (NEB) 3 ML AMP HHN (16:00)
[2018-01-02] MEDS ORDERED: hydrALAzine 20 MG INJ IV (16:00)
[2018-01-02] MEDS ORDERED: MAGNESIUM HYDROXIDE 30ML CUP PO (16:00)
[2018-01-02] MEDS ORDERED: DOCUSATE SODIUM 100 MG CAP PO (16:00)
[2018-01-02] MEDS ORDERED: NA PHOSPHATE/BIPHOS 133 ML ENEMA PR (16:00)
[2018-01-02] MEDS ORDERED: HYDROCODONE/APAP (5/325) TAB PO (16:00)
[2018-01-02] MEDS ORDERED: NACL 0.9% 3 ML SYG IV (16:00)
[2018-01-02] MEDS ORDERED: NITROGLYCERIN (SL) 0.4 MG TAB SL (16:00)
[2018-01-02 16:22] LABS: FREE T4 (FREE THYROXINE) 0.91 ng/dl (0.78-2.44)
[2018-01-02] MEDS: SOD CHLORIDE 0.45% 1,000 ML IV (16:38)
[2018-01-02] MEDS: morphine 2 MG INJ IV ×2 (16:47→21:54)
[2018-01-02 16:51] LABS: INR 1.34; PROTIME 16.8 Sec (11.9-14.9); PT RATIO 1.3
[2018-01-02 16:51] LABS: LACTIC ACID 0.9 mmol/L (0.5-2.0)
[2018-01-02 16:52] LABS: PARTIAL THROMBOPLASTIN TIME 40.1 Sec (25.0-35.0)
[2018-01-02] MEDS ORDERED: VANCOMYCIN IV PER PHARMACY XX (17:30)
[2018-01-02] MEDS ORDERED: PIPER-TAZO 3.375 GM IV (PMX) 100 ML IVPB (18:00)
[2018-01-02] MEDS: oxyCODONE (CR) 40 MG TAB [oxyCONTIN] PO (20:31)
[2018-01-02] MEDS: HEPARIN 5,000 UNIT/0.5 ML VIAL SC ×2 (20:32→20:39)
[2018-01-02 20:49] LABS: LACTIC ACID 1.1 mmol/L (0.5-2.0)
[2018-01-02] MEDS: ONDANSETRON 4 MG INJ IV (21:54)
[2018-01-03] MEDS: morphine 2 MG INJ IV ×4 (02:42→20:11)
[2018-01-03] MEDS: SOD CHLORIDE 0.45% 1,000 ML IV ×2 (04:57→10:17)
[2018-01-03] MEDS: PANTOPRAZOLE (EC) 40 MG TAB PO (05:56)
[2018-01-03 06:16] LABS: ADD MAN DIFF? NO
[2018-01-03 06:29] LABS: ABNORMAL IP MESSAGE 1; BASOPHILS % 0.2 % (0.0-2.0); HEMOGLOBIN 10.9 g/dl (14.0-18.0); LYMPHOCYTES # 0.3 10^3/ul (0.8-2.9); LYMPHOCYTES % 4.6 % (15.0-51.0); MEAN CORPUSCULAR HGB CONC 31.1 g/dl (32.0-37.0); MEAN CORPUSCULAR VOLUME 80.3 fl (82.0-101.0); MEAN PLATELET VOLUME 11.9 fl (7.4-10.4); MONOCYTE # 0.4 10^3/ul (0.3-0.9); MONOCYTES % 7.1 % (0.0-11.0); NEUTROPHIL # 5.2 10^3/ul (1.6-7.5); NEUTROPHILS % 87.9 % (39.0-77.0); PLATELET COUNT 130 10^3/UL (140-415); POSITIVE DIFF @See below; RED BLOOD COUNT 4.36 10^6/ul (4.70-6.10); RED CELL DISTRIBUTION WIDTH 17.8 % (11.5-14.5)
[2018-01-03 06:29] LABS: WHITE BLOOD COUNT 5.9 10^3/ul (4.8-10.8)
[2018-01-03 06:53] LABS: ANION GAP 12 (8-16); BLOOD UREA NITROGEN 17 mg/dl (7-20); CALCIUM 8.2 mg/dl (8.4-10.2); CARBON DIOXIDE 26 mmol/L (21-31); CHLORIDE 104 mmol/L (97-110); CHOL/HDL RATIO 5.4 RATIO; CHOLESTEROL 136 mg/dl (100-200); CREATININE 0.79 mg/dl (0.61-1.24); GLUCOSE 135 mg/dl (70-220); HDL CHOLESTEROL 25 mg/dl (30-78); LDL CHOLESTEROL,CALCULATED 74 mg/dl; MAGNESIUM 1.7 mg/dl (1.7-2.5); PHOSPHORUS 3.2 mg/dl (2.5-4.9); POTASSIUM 3.7 mmol/L (3.5-5.1); SODIUM 138 mmol/L (135-144); TRIGLYCERIDES 187 mg/dl (0-149)
[2018-01-03] MEDS: SERTRALINE 100 MG TAB PO (08:47)
[2018-01-03] MEDS: HEPARIN 5,000 UNIT/0.5 ML VIAL SC ×2 (08:48→21:00)
[2018-01-03] MEDS: oxyCODONE (CR) 40 MG TAB [oxyCONTIN] PO ×2 (10:16→21:31)
[2018-01-03] MEDS: VANCOMYCIN 1.25 GM in SOD CHLORIDE 0.9% 250 ML IVPB (11:42)
[2018-01-03] MEDS: CEFTRIAXONE 1 GM/50 ML (PMX) 50 ML IVPB (16:30)
[2018-01-04] MEDS: ALTEPLASE (CATHFLO) 2 MG INJ CATHETER (00:19)
[2018-01-04] MEDS: morphine 2 MG INJ IV ×4 (01:57→20:27)
[2018-01-04 02:06] LABS: VANCOMYCIN,TROUGH 9.6 ug/ml (10.0-20.0)
[2018-01-04] MEDS: VANCOMYCIN 1.25 GM in SOD CHLORIDE 0.9% 250 ML IVPB ×2 (02:23→14:04)
[2018-01-04] MEDS: SOD CHLORIDE 0.45% 1,000 ML IV ×2 (02:24→20:57)
[2018-01-04 04:57] LABS: ADD MAN DIFF? NO
[2018-01-04 05:04] LABS: ABNORMAL IP MESSAGE 1; HEMATOCRIT 35.2 % (42.0-52.0); HEMOGLOBIN 10.9 g/dl (14.0-18.0); LYMPHOCYTES # 0.3 10^3/ul (0.8-2.9); MEAN CORPUSCULAR HEMOGLOBIN 24.8 pg (29.0-33.0); MEAN CORPUSCULAR VOLUME 80.2 fl (82.0-101.0); MEAN PLATELET VOLUME 10.9 fl (7.4-10.4); MONOCYTE # 0.3 10^3/ul (0.3-0.9); MONOCYTES % 8.3 % (0.0-11.0); NEUTROPHIL # 3.3 10^3/ul (1.6-7.5); NEUTROPHILS % 84.4 % (39.0-77.0); PLATELET COUNT 115 10^3/UL (140-415); POSITIVE DIFF @See below; RED BLOOD COUNT 4.39 10^6/ul (4.70-6.10); RED CELL DISTRIBUTION WIDTH 17.2 % (11.5-14.5)
[2018-01-04 05:04] LABS: WHITE BLOOD COUNT 3.9 10^3/ul (4.8-10.8)
[2018-01-04] MEDS: ACETAMINOPHEN 325 MG TAB PO (05:09)
[2018-01-04] MEDS: PANTOPRAZOLE (EC) 40 MG TAB PO (05:09)
[2018-01-04 05:29] LABS: ANION GAP 10 (8-16); BLOOD UREA NITROGEN 12 mg/dl (7-20); CALCIUM 8.2 mg/dl (8.4-10.2); CARBON DIOXIDE 26 mmol/L (21-31); CHLORIDE 104 mmol/L (97-110); CREATININE 0.78 mg/dl (0.61-1.24); GLUCOSE 124 mg/dl (70-220); POTASSIUM 3.7 mmol/L (3.5-5.1); SODIUM 136 mmol/L (135-144)
[2018-01-04 07:15] LABS: C-REACTIVE PROTEIN 15.6 mg/dl (0.0-0.9)
[2018-01-04] MEDS: SERTRALINE 100 MG TAB PO (08:02)
[2018-01-04] MEDS: oxyCODONE (CR) 40 MG TAB [oxyCONTIN] PO ×2 (08:02→20:28)
[2018-01-04] MEDS: HEPARIN 5,000 UNIT/0.5 ML VIAL SC ×2 (08:03→21:00)
[2018-01-04] MEDS: CEFTRIAXONE 1 GM/50 ML (PMX) 50 ML IVPB (17:03)
[2018-01-05] MEDS: morphine 2 MG INJ IV ×3 (01:41→09:56)
[2018-01-05] MEDS: VANCOMYCIN 1.25 GM in SOD CHLORIDE 0.9% 250 ML IVPB (01:46)
[2018-01-05] MEDS: SOD CHLORIDE 0.45% 1,000 ML IV (01:46)
[2018-01-05 05:39] LABS: ADD MAN DIFF? NO
[2018-01-05 05:45] LABS: ABNORMAL IP MESSAGE 1; BASOPHILS % 0.2 % (0.0-2.0); HEMOGLOBIN 11.6 g/dl (14.0-18.0); LYMPHOCYTES # 0.6 10^3/ul (0.8-2.9); LYMPHOCYTES % 9.8 % (15.0-51.0); MEAN CORPUSCULAR HEMOGLOBIN 24.8 pg (29.0-33.0); MEAN CORPUSCULAR HGB CONC 31.4 g/dl (32.0-37.0); MEAN CORPUSCULAR VOLUME 79.2 fl (82.0-101.0); MEAN PLATELET VOLUME 11.2 fl (7.4-10.4); MONOCYTE # 0.3 10^3/ul (0.3-0.9); MONOCYTES % 5.8 % (0.0-11.0); NEUTROPHIL # 4.9 10^3/ul (1.6-7.5); PLATELET COUNT 186 10^3/UL (140-415); POSITIVE DIFF @See below; RED BLOOD COUNT 4.67 10^6/ul (4.70-6.10); RED CELL DISTRIBUTION WIDTH 17.2 % (11.5-14.5)
[2018-01-05 05:45] LABS: WHITE BLOOD COUNT 5.8 10^3/ul (4.8-10.8)
[2018-01-05 06:22] LABS: ANION GAP 11 (8-16); BLOOD UREA NITROGEN 12 mg/dl (7-20); CALCIUM 8.5 mg/dl (8.4-10.2); CARBON DIOXIDE 27 mmol/L (21-31); CHLORIDE 105 mmol/L (97-110); CREATININE 0.81 mg/dl (0.61-1.24); GLUCOSE 113 mg/dl (70-220); POTASSIUM 3.6 mmol/L (3.5-5.1); SODIUM 139 mmol/L (135-144)
[2018-01-05] MEDS: PANTOPRAZOLE (EC) 40 MG TAB PO (06:35)
[2018-01-05] MEDS: LORAZEPAM 2 MG INJ IV (08:31)
[2018-01-05] MEDS: SERTRALINE 100 MG TAB PO (09:00)
[2018-01-05] MEDS: HEPARIN 5,000 UNIT/0.5 ML VIAL SC (09:00)
[2018-01-05] MEDS: oxyCODONE (CR) 40 MG TAB [oxyCONTIN] PO (09:00)
[2018-01-05] MEDS ORDERED: LORAZEPAM 2 MG INJ IV (12:00)
== END 2018-01-05 12:30 | disposition left against medical advice (07) | DRG 863 ==
LOC: E/R 11:43 → PP2 14:15
DX: T81.4XXA Infection following a procedure, initial encounter (principal); L03.116 Cellulitis of left lower limb; F11.20 Opioid dependence, uncomplicated; F41.9 Anxiety disorder, unspecified; G89.18 Other acute postprocedural pain; M32.9 Systemic lupus erythematosus, unspecified; M06.9 Rheumatoid arthritis, unspecified; Z98.1 Arthrodesis status
CPT/HCPCS: 36415; 71045; 73600-LT; 73620; 80048; 80061; 80202; 81003; 83036; 83605; 83735; 84100; 84439; 84443; 84484; 85025; 85610; 85651; 85730; 86140; 87040; 87081; 87086; 93005; 96374; 96375; 97166; 99284-25; 99291-25

== ENCOUNTER 2018-01-06 07:55 | Emergency (ER) | payer MEDICARE, OTHER | END 2018-01-06 10:06 | disposition home or self-care (01) | LOC: E/R 07:55 | DX: Z00.00 Encounter for general adult medical examination without abnormal findings (principal) | CPT/HCPCS: 99282 ==

== ENCOUNTER 2018-01-24 05:54 | Inpatient (IN) | payer MEDICARE, OTHER ==
[2018-01-24] MEDS ORDERED: FENTAnyl 50 MCG/ML VIAL IV ×3 (08:00)
[2018-01-24] MEDS ORDERED: LABETALOL HCL 20MG INJ IV (08:00)
[2018-01-24] MEDS ORDERED: DIPHENHYDRAMINE 50 MG INJ IV (08:00)
[2018-01-24] MEDS ORDERED: CEFAZOLIN 1 GM INJ (08:00)
[2018-01-24] MEDS ORDERED: MIDAZOLAM 1 MG/ML 2 ML INJ (08:00)
[2018-01-24] MEDS ORDERED: HYDROmorphONE 2 MG/ML SYG ×2 (08:00→09:57)
[2018-01-24] MEDS ORDERED: PROPOFOL 20 ML (08:00)
[2018-01-24] MEDS ORDERED: ALBUMIN HUMAN 5% 250 ML IV (08:00)
[2018-01-24] MEDS ORDERED: ONDANSETRON 4 MG INJ IV ×2 (08:00→11:30)
[2018-01-24] MEDS ORDERED: ROCURONIUM 50 MG INJ (08:00)
[2018-01-24] MEDS ORDERED: HYDROmorphONE 1 MG/5 ML IV SYRINGE IV ×3 (08:00)
[2018-01-24] MEDS ORDERED: hydrALAzine 20 MG INJ IV (08:00)
[2018-01-24] MEDS ORDERED: METOCLOPRAMIDE 10 MG INJ IV (08:00)
[2018-01-24] MEDS ORDERED: MEPERIDINE 25 MG INJ IV (08:00)
[2018-01-24] MEDS ORDERED: EPHEDrine SULFATE 50 MG/5 ML SYG IV (08:00)
[2018-01-24] MEDS ORDERED: OXYCODONE/ACETAMINOPHEN (5/325) TAB PO ×2 (08:00)
[2018-01-24] MEDS ORDERED: METOCLOPRAMIDE 10 MG INJ (08:09)
[2018-01-24] MEDS ORDERED: ONDANSETRON 4 MG INJ (08:09)
[2018-01-24] MEDS ORDERED: DEXAMETHASONE 4 MG/ML 1 ML INJ (08:09)
[2018-01-24] MEDS ORDERED: KETOROLAC 30 MG INJ (08:10)
[2018-01-24] MEDS ORDERED: ACETAMINOPHEN 1000MG/100ML IV 100 ML (08:22)
[2018-01-24] MEDS ORDERED: ROPIVACAINE 0.5 % 30 ML VIAL (09:52)
[2018-01-24] MEDS ORDERED: LABETALOL HCL 20MG INJ (10:05)
[2018-01-24] MEDS: POLYMYXIN/BACITRACIN 1L IRRIG (10:20)
[2018-01-24] MEDS ORDERED: SUGAMMADEX SODIUM 200 MG/2 ML VIAL IV (10:39)
[2018-01-24] MEDS ORDERED: OXYCODONE/ACETAMINOPHEN (10/325) TAB PO (11:30)
[2018-01-24] MEDS: morphine 2 MG INJ IV (13:16)
[2018-01-24] MEDS ORDERED: MAGNESIUM HYDROXIDE 30ML CUP PO (17:30)
[2018-01-24] MEDS ORDERED: DOCUSATE SODIUM 100 MG CAP PO (17:30)
[2018-01-24] MEDS ORDERED: NACL 0.9% 3 ML SYG IV (17:30)
[2018-01-24] MEDS ORDERED: ACETAMINOPHEN 325 MG TAB PO (17:30)
[2018-01-24] MEDS ORDERED: HYDROCODONE/APAP (5/325) TAB PO (17:30)
[2018-01-24] MEDS ORDERED: ZOLPIDEM 5 MG TAB PO (17:30)
[2018-01-24] MEDS: HYDROmorphONE 1 MG/ML SYG IV ×2 (17:45→20:51)
[2018-01-25] MEDS: HYDROmorphONE 1 MG/ML SYG IV ×4 (01:14→11:01)
[2018-01-25 05:25] LABS: ADD MAN DIFF? NO
[2018-01-25 05:27] LABS: ABNORMAL IP MESSAGE 1; HEMATOCRIT 32.5 % (42.0-52.0); HEMOGLOBIN 10.2 g/dl (14.0-18.0); LYMPHOCYTES # 0.6 10^3/ul (0.8-2.9); LYMPHOCYTES % 11.8 % (15.0-51.0); MEAN CORPUSCULAR HEMOGLOBIN 25.1 pg (29.0-33.0); MEAN CORPUSCULAR HGB CONC 31.4 g/dl (32.0-37.0); MEAN PLATELET VOLUME 11.2 fl (7.4-10.4); MONOCYTE # 0.5 10^3/ul (0.3-0.9); MONOCYTES % 10.1 % (0.0-11.0); NEUTROPHIL # 3.8 10^3/ul (1.6-7.5); NEUTROPHILS % 77.7 % (39.0-77.0); PLATELET COUNT 129 10^3/UL (140-415); POSITIVE DIFF @See below; RED BLOOD COUNT 4.06 10^6/ul (4.70-6.10); RED CELL DISTRIBUTION WIDTH 16.3 % (11.5-14.5)
[2018-01-25 05:27] LABS: WHITE BLOOD COUNT 4.8 10^3/ul (4.8-10.8)
[2018-01-25 05:52] LABS: ANION GAP 11 (8-16); BLOOD UREA NITROGEN 17 mg/dl (7-20); CALCIUM 8.7 mg/dl (8.4-10.2); CARBON DIOXIDE 29 mmol/L (21-31); CHLORIDE 103 mmol/L (97-110); CREATININE 0.81 mg/dl (0.61-1.24); GLUCOSE 116 mg/dl (70-220); MAGNESIUM 1.9 mg/dl (1.7-2.5); PHOSPHORUS 2.9 mg/dl (2.5-4.9); POTASSIUM 4.2 mmol/L (3.5-5.1); SODIUM 139 mmol/L (135-144)
[2018-01-25 07:33] LABS: HEMOGLOBIN A1C 6.1 % (0-5.9)
[2018-01-25] MEDS: SERTRALINE 100 MG TAB PO (08:12)
[2018-01-25] MEDS: ENOXAPARIN 40 MG/0.4 ML SYG SC (08:12)
[2018-01-25] MEDS: ONDANSETRON 4 MG INJ IV (11:06)
[2018-01-25] MEDS ORDERED: clonAZEPAM 0.5 MG TAB PO (12:30)
== END 2018-01-25 14:30 | disposition home health service (06) | DRG 494 ==
LOC: REC 05:54 → PP2 13:02 → SDS 05:59 → NST 13:02 → PP2 11:44 → NST 11:44 → SDS 11:43 → PP2 11:44
PROC: 0SGG0KZ Fusion of Left Ankle Joint with Nonautologous Tissue Substitute, Open Approach (ICD-10-PCS; principal; 2018-01-24 07:30)
PROC: 0SPGX5Z Removal of External Fixation Device from Left Ankle Joint, External Approach (ICD-10-PCS; 2018-01-24 07:30)
DX: M14.672 Charcot's joint, left ankle and foot (principal); M21.072 Valgus deformity, not elsewhere classified, left ankle; M79.7 Fibromyalgia; G89.29 Other chronic pain; M54.9 Dorsalgia, unspecified; F32.9 Major depressive disorder, single episode, unspecified; F41.9 Anxiety disorder, unspecified
CPT/HCPCS: 73610; 80048; 83036; 83735; 84100; 85025

== ENCOUNTER → 2018-06-02 | Outpatient (CLI) | payer MEDICARE, OTHER | END | disposition home or self-care (01) | LOC: RAD 11:00 | DX: M79.672 Pain in left foot (principal) | CPT/HCPCS: 73610; 73630-LT ==

== ENCOUNTER 2018-06-13 12:39 | Emergency (ER) | payer MEDICARE, OTHER ==
[2018-06-13 14:25] LABS: ADD MAN DIFF? NO
[2018-06-13 14:29] LABS: BASOPHILS % 0.4 % (0.0-2.0); HEMATOCRIT 37.6 % (42.0-52.0); HEMOGLOBIN 11.5 g/dl (14.0-18.0); LYMPHOCYTES # 0.9 10^3/ul (0.8-2.9); MEAN CORPUSCULAR HEMOGLOBIN 24.9 pg (29.0-33.0); MEAN CORPUSCULAR HGB CONC 30.6 g/dl (32.0-37.0); MEAN CORPUSCULAR VOLUME 81.4 fl (82.0-101.0); MONOCYTE # 0.5 10^3/ul (0.3-0.9); MONOCYTES % 9.7 % (0.0-11.0); NEUTROPHIL # 3.9 10^3/ul (1.6-7.5); NEUTROPHILS % 72.7 % (39.0-77.0); PLATELET COUNT 116 10^3/UL (140-415); POSITIVE DIFF @See below; RED BLOOD COUNT 4.62 10^6/ul (4.70-6.10); RED CELL DISTRIBUTION WIDTH 15.9 % (11.5-14.5)
[2018-06-13 14:29] LABS: WHITE BLOOD COUNT 5.4 10^3/ul (4.8-10.8)
[2018-06-13 14:49] LABS: ANION GAP 9 (5-13); BLOOD UREA NITROGEN 19 mg/dl (7-20); CALCIUM 9.3 mg/dl (8.4-10.2); CARBON DIOXIDE 29 mmol/L (21-31); CHLORIDE 103 mmol/L (97-110); CREATININE 1.02 mg/dl (0.61-1.24); Estimated GFR > 60 mL/min (>60); GLUCOSE 99 mg/dl (70-220); POTASSIUM 4.5 mmol/L (3.5-5.1); SODIUM 141 mmol/L (135-144)
== END 2018-06-13 16:40 | disposition home or self-care (01) ==
LOC: FTE 12:39
DX: M79.672 Pain in left foot (principal)
CPT/HCPCS: 80048; 85025; 93971; 99284-25

== ENCOUNTER 2018-07-06 16:06 | Emergency (ER) | payer MEDICARE, OTHER ==
[2018-07-06] MEDS: DEXAMETHASONE 10 MG/ML 1 ML INJ IM (18:34)
[2018-07-06] MEDS: METHOCARBAMOL 750 MG TAB PO (18:34)
[2018-07-06] MEDS: HYDROmorphONE 0.5 MG/0.5 ML SYG IM (18:34)
== END 2018-07-06 19:43 | disposition home or self-care (01) ==
LOC: FTE 16:06
DX: M79.672 Pain in left foot (principal); M54.5 Low back pain
CPT/HCPCS: 96372; 99284-25